=== PATIENT | female | born 1940 | race Caucasian/White ===

== ENCOUNTER → 2017-03-05 | Outpatient (CLI) | payer OTHER ==
[~2017-03-05] MED LIST: DEPO METHYLPREDNISOLONE 40 MG/ML SDV ONE; IOPAMIDOL (ISOVUE 370) 100 ML BTL IV ONE; LIDOCAINE 1% 30 ML SDV ONE; NA BICARBONATE 50 MEQ/50 ML VIAL ONE; ROPIVACAINE HCL 150 MG/30 ML INJ ONE
== END ==
LOC: FIMAGING 12:39
PROVIDERS: ATTEND Physician Assistant
PROC: 3E0U3BZ Introduction of Anesthetic Agent into Joints, Percutaneous Approach (ICD-10-PCS; principal; 2017-03-05)
PROC: 3E0U33Z Introduction of Anti-inflammatory into Joints, Percutaneous Approach (ICD-10-PCS; principal; 2017-03-05)
DX: M25.552 Pain in left hip (principal)
CPT/HCPCS: 20611; J1030; J2795; Q9967

== ENCOUNTER 2017-07-04 08:15 | Inpatient (IN) | payer OTHER ==
[2017-07-04] MEDS ORDERED: TRANEXAMIC ACID 3,000 MG/50 ML BAG IRR ONE (08:56)
--- NOTE | 2017-07-04 12:08 | PDHPUP ---
History & Physical Update H&P update statement: This history and physical update is based on an assessment of the patient which was completed after admission or registration (within 24 hours), but prior to the surgery/procedure. H&P update: H&P reviewed & patient examined, no change in patient's condition since H&P completed
[2017-07-04] MEDS ORDERED: ceFAZolin 2 GM/DEXTROSE 100 ML IV ONE (12:36)
[2017-07-04] MEDS ORDERED: DEXAMETHASONE 4 MG/ML VIAL IVP ONE (12:36)
[2017-07-04] MEDS ORDERED: FAMOTIDINE 20 MG TAB PO ONE (12:36)
[2017-07-04] MEDS ORDERED: ACETAMINOPHEN 325 MG TAB PO ONE (12:36)
[2017-07-04] MEDS ORDERED: LIDOCAINE 1% 2 ML INJ ID PRN (12:37)
[2017-07-04] MEDS ORDERED: LR 1,000 ML IV ONE (12:37)
[2017-07-04] MEDS ORDERED: TRANEXAMIC ACID 3,000 MG in NS 50 ML IRR ONE (13:00)
[2017-07-04] MEDS ORDERED: ROPIVACAINE 0.2% 80 MG, EPINEPHrine 0.2 MG, KETOROLAC TROMETHAMINE 30 MG in BAG 0 ML IU ONE (13:00)
[2017-07-04] MEDS ORDERED: PROPOFOL/EMULSION 500 MG/50 ML BOTTLE IV ONE (13:43)
--- NOTE | 2017-07-04 13:48 | PDANEPAE ---
ANE History of Present Illness left hip OA ANE Past Medical History - Cardiovascular History Hx Hypertension: No Hx Arrhythmias: No Hx Chest Pain: No Hx Coronary Artery / Peripheral Vascular Disease: No Hx CHF / Valvular Disease: No Hx Palpitations: No - Pulmonary History Hx COPD: No Hx Asthma/Reactive Airway Disease: No Hx Recent Upper Respiratory Infection: No Hx Oxygen in Use at Home: No Hx Sleep Apnea: No Sleep Apnea Screening Result - Last Documented: Negative - Neurologic History Hx Cerebrovascular Accident: No Hx Seizures: No Hx Dementia: No Neurologic History Comment: " at age 77- some memory issues" - Endocrine History Hx Diabetes: No Endocrine History Comment: hypothyroid - Renal History Hx Renal Disorders: No - Liver History Hx Hepatic Disorders: No - Neurological & Psychiatric Hx Hx Neurological and Psychiatric Disorders: Yes Neurological / Psychiatric History Comment: chronic low back pain- stenosis - Cancer History Hx Cancer: No - Congenital Disorder History Hx Congenital Disorders: No - GI History Hx Gastrointestinal Disorders: No - Other Health History Other Health History: OA L hip - Chronic Pain History Chronic Pain: Yes (L hip) - Surgical History Prior Surgeries: hysterectomy '. tonsillectomy child ANE Review of Systems Review of Systems: - Exercise capacity METS (RN): 4 METS ANE Patient History - Allergies Allergies/Adverse Reactions: No Known Allergies Allergy (Unverified 06/10/17 13:14) - Home Medications Home medications: home medication list seen and reviewed Home Medications: Cholecalciferol (Vitamin D3) [Vitamin D3] 1 tab PO DAILY 06/09/17 [Last Taken ] Cyanocobalamin [Vitamin B12 (*)] 1,000 mcg PO DAILY 06/09/17 [Last Taken ] Estradiol [Estrace Vaginal (*)] 1.5 gm TP HS 06/09/17 [Last Taken Unknown] Herbals/Supplements -Info Only 1 ea PO DAILY 06/09/17 [Last Taken 06/20/17] Melatonin [Melatonin 3 MG (*)] 3 mg PO HS 06/09/17 [Last Taken 07/03/17] Thyroid,Pork [[place] Thyroid] 30 mg PO DAILY06 06/09/17 [Last Taken Unknown] celeCOXIB [Celebrex (*)] 200 mg PO DAILY 06/09/17 [Last Taken 07/03/17] oxyCODONE/APAP 5/325 [Percocet 5/325 (*)] 1 tab PO QID 06/09/17 [Last Taken 04/12] - NPO status NPO Since - Liquids (Date): 07/04/17 NPO Since - Liquids (Time): 08:00 NPO Since - Solids (Date): 07/03/17 - Anes Hx Anes Hx: no prior problems - Smoking Hx Smoking Status: Former smoker ANE Labs/Vital Signs - Vital Signs Blood Pressure: 131/78 Heart Rate: 77 Respiratory Rate: 18 O2 Sat (%): 95 Height: 177.8 cm Weight: 70.307 kg ANE Physical Exam - Airway Neck exam: FROM Mallampati Score: Class 2 Mouth exam: normal dental/mouth exam - Pulmonary Pulmonary: no respiratory distress - Cardiovascular Cardiovascular: regular rate and rhythym - ASA Status ASA Status: II ANE Anesthesia Plan Anesthesia Plan: spinal
[2017-07-04] MEDS ORDERED: LIDOCAINE 2% 5 ML SDV ONE (13:51)
[2017-07-04] MEDS ORDERED: ESMOLOL HCL 100 MG/10 ML VIAL IV ONE (14:45)
[2017-07-04] MEDS ORDERED: ACETAMINOPHEN 500 MG TAB PO PRN (14:47)
[2017-07-04] MEDS ORDERED: ONDANSETRON 4 MG/2 ML VIAL IVP PRN ×2 (14:47→15:28)
[2017-07-04] MEDS ORDERED: PROMETHAZINE HCL 25 MG/ML INJ IVP PRN ×2 (14:47→15:28)
[2017-07-04] MEDS ORDERED: OXYCODONE/APAP 5/325 TAB PO PRN (14:47)
[2017-07-04] MEDS ORDERED: NALOXONE HCL 0.4 MG/ML INJ IVP PRN (14:47)
[2017-07-04] MEDS ORDERED: ALBUTEROL 3 ML DEYVIAL IH PRN (14:47)
[2017-07-04] MEDS ORDERED: BISACODYL 10 MG SUPP PR PRN (15:28)
[2017-07-04] MEDS ORDERED: MAGNESIUM HYDROXIDE 30 ML UDCUP PO PRN (15:28)
[2017-07-04] MEDS ORDERED: diphenhydrAMINE 25 MG CAP PO PRN (15:28)
[2017-07-04] MEDS ORDERED: PROMETHAZINE HCL 25 MG SUPPR PR PRN (15:28)
[2017-07-04] MEDS ORDERED: LACTULOSE 20 GM/30 ML UDCUP PO PRN (15:28)
[2017-07-04] MEDS ORDERED: TEMAZEPAM 15 MG CAP PO PRN (15:28)
[2017-07-04] MEDS ORDERED: ONDANSETRON DISINTEGRATING 4 MG TAB PO PRN (15:28)
[2017-07-04] MEDS ORDERED: POLYETHYLENE GLYCOL 3350 17 GM PKT PO PRN (15:28)
[2017-07-04] MEDS ORDERED: DIPHENOXYLATE/ATROPINE LOMOTIL 1 TAB PO PRN (15:28)
[2017-07-04] MEDS ORDERED: METOCLOPRAMIDE 10 MG/2 ML VIAL IVP PRN (15:28)
[2017-07-04] MEDS ORDERED: CYCLOBENZAPRINE 10 MG TAB PO PRN (15:28)
[2017-07-04] MEDS ORDERED: LR 1,000 ML IV SCH (15:30)
--- NOTE | 2017-07-04 15:38 | POSTANESTH ---
Post Anesthetic Evaluation Cardiovascular Status: Normal, Stable Respiratory Status: Normal, Stable Level of Consciousness/Mental Status: Can Participate in Eval Pain Control: Adequate, Prn Tx Ordered Nausea/Vomiting Control: Adequate, Prn Tx Ordered Complications Possibly Related to Anesthesia: None Noted
[2017-07-04] MEDS ORDERED: fentaNYL 100 MCG/2 ML INJ ONE (15:49)
[2017-07-04] MEDS: fentaNYL 100 MCG/2 ML INJ IVP PRN ×2 (15:50→15:55)
[2017-07-04] MEDS ORDERED: HYDROmorphONE/DILAUDID 1 MG/ML INJ ONE (16:14)
[2017-07-04] MEDS: HYDROmorphONE/DILAUDID 1 MG/ML INJ IVP PRN ×3 (16:15→16:35)
[2017-07-04] MEDS ORDERED: DIAZEPAM 10 MG/2 ML SYR IVP PRN (16:27)
[2017-07-04] MEDS ORDERED: DIAZEPAM 10 MG/2 ML SYR ONE (16:30)
[2017-07-04] MEDS: ACETAMINOPHEN 325 MG TAB PO SCH ×2 (18:40→23:13)
[2017-07-04] MEDS: SENNOSIDES/DOCUSATE SODIUM TAB PO SCH (20:20)
[2017-07-04] MEDS: FAMOTIDINE 20 MG TAB PO SCH (20:20)
[2017-07-04] MEDS: ASPIRIN 325 MG TAB PO SCH (20:20)
[2017-07-04] MEDS: ceFAZolin 2 GM/DEXTROSE 100 ML IV SCH (22:15)
[2017-07-04] MEDS: oxyCODONE IR 5 MG TAB PO PRN (22:27)
[2017-07-05] MEDS: ACETAMINOPHEN 325 MG TAB PO SCH ×2 (05:13→11:07)
[2017-07-05] MEDS: ceFAZolin 2 GM/DEXTROSE 100 ML IV SCH (05:13)
[2017-07-05 05:29] LABS: HEMATOCRIT 31.8 % (38.0-47.0); HEMOGLOBIN 10.6 g/dL (12.6-16.3)
[2017-07-05] MEDS ORDERED: THYROID 60 MG TAB PO SCH (06:00)
[2017-07-05 07:41] VITALS: RESP 16; O2SAT 99
[2017-07-05] MEDS: FAMOTIDINE 20 MG TAB PO SCH (08:14)
[2017-07-05] MEDS: SENNOSIDES/DOCUSATE SODIUM TAB PO SCH (08:14)
[2017-07-05] MEDS: ASPIRIN 325 MG TAB PO SCH (08:14)
[2017-07-05] MEDS ORDERED: PNEUMOC 13-VAL CONJ-DIP CRM/PF 0.5 ML SYR IM ONE (10:03)
[2017-07-05 11:45] VITALS: BP 106/56; PULSE 78; TEMP 97.8
--- NOTE | 2017-07-05 12:00 | SOAPPROG ---
SOAP Progress Note Assessment/Plan: Assessment: Patient is doing well POD 1 s/p L RANJIT Pain management: pain is well controlled on oral pain meds. VTE ppx: recommend aspirin daily for 3 weeks, cont CA and SCDs Anemia: level is expected initially postop. Asymptomatic. Continue to monitor D/c planning: d/c to home today pending release from PT Plan: 07/05/17 11:59 Objective: Vital Signs Temp Pulse Resp BP Pulse Ox 36.6 C 78 16 106/56 L 99 07/05/17 11:42 07/05/17 11:42 07/05/17 11:42 07/05/17 11:42 07/05/17 07:40 Laboratory Results 07/05/17 04:16 07/04/17 07/05/17 07/06/17 05:59 05:59 05:59 Intake Total 2350 Output Total 750 Balance 1600 ICD10 Worksheet Patient Problems: Problems Problem Status Onset Osteoarthritis of left hip Acute - ICD10 Problem Qualifiers (1) Osteoarthritis of left hip Qualifiers: Osteoarthritis type: primary Qualified Code(s): M16.12 - Unilateral primary osteoarthritis, left hip
[2017-07-05] MEDS: oxyCODONE IR 5 MG TAB PO PRN (12:13)
--- NOTE | 2017-07-06 17:06 | ASDISCHSUM ---
Discharge Information Plan Status:Home with No Needs Medically Cleared to Leave:07/05/2017 Discharge Date:07/05/2017 01:50 PM CM D/C Disposition:Home, Routine, Self-Care ADT D/C Disposition:Home, Routine, Self-Care Projected Discharge Date:07/05/2017 12:00 AM Transportation at D/C:Family Discharge Delay Reason: Follow-Up Date:07/05/2017 12:00 AM Discharge Slot: Final Diagnosis:L RANJIT Placement Information Patient Contact Information Contact Name:UNRULY Relationship: Address:[address] [place] [address] Work Phone: [place] [place] Alternate Phone: State/Zip Code:[place] [address] Email: Financial Information Financial Class: Primary Plan Desc:MEDICARE INPATIENT Primary Plan Number:[id number] Secondary Plan Desc:[employer] Secondary Plan Number:[id number] Assessment Information Intervention Information
--- NOTE | 2017-07-06 17:08 | ASMTCMCOM ---
CM Note CM Note Notes: Reviewed chart, spoke w/ NOLA Patiño. Pt to discharge home independently w/ family support and no identified needs. No OT recs. PT rec outpt rehab and use of front wheeled walker. Pt to f/u as directed. CM avail for any further issues or concerns. Date Signed: 07/05/2017 03:35 PM Electronically Signed By:Eunice Soni
--- NOTE | 2017-07-10 03:59 | GDS ---
[f rep st] DISCHARGE SUMMARY ADMISSION DIAGNOSIS: Left hip osteoarthritis. DISCHARGE DIAGNOSIS: Left hip osteoarthritis. PROCEDURE: Left total hip arthroplasty. VTE PROPHYLAXIS: Full-strength aspirin x21 days. BRIEF DESCRIPTION OF HOSPITAL STAY: Patient was admitted for an elective joint arthroplasty. The pa tient tolerated the procedure well and has passed physical therapy. The patient was given appropriat e antibiotic prophylaxis and venous thromboembolism prophylaxis. The patient's pain was well control led on oral pain medication, patient was holding down food, and had urinated. Decision was made to d ischarge the patient. The patient was given post-operative prescriptions pre-operatively. PLAN: Please follow up with Dr. Castro as scheduled on 07/24/2017. /[id number]/MODL
== END 2017-07-05 13:50 | disposition home or self-care (01) | DRG 470 ==
LOC: F3N 11:59
PROVIDERS: ADMIT Orthopaedic Surgery; ATTEND Orthopaedic Surgery
PROC: 0SRB04Z Replacement of Left Hip Joint with Ceramic on Polyethylene Synthetic Substitute, Open Approach (ICD-10-PCS; principal; 2017-07-04 08:15)
DX: M16.12 Unilateral primary osteoarthritis, left hip (principal)
CPT/HCPCS: 97161-GP; 97165-GO; 97535-GO; G8978-GP-CI; G8979-GP-CI; G8980-GP-CI; G8987-GO-CI; G8988-GO-CI; G8989-GO-CI; J0171; J0690; J1100; J1170; J1885; J2704; J2795; J3010

== ENCOUNTER → 2018-01-15 | Outpatient (CLI) | payer OTHER | LOC: CIMAGING 16:51 | PROVIDERS: ATTEND Family Medicine | DX: R05 Cough (principal) | CPT/HCPCS: 71046-PO ==